=== PATIENT | female | born 1945 | race Caucasian/White ===

== ENCOUNTER → 2017-02-03 | Outpatient (CLI) | payer MEDICARE ==
[~2017-02-03] MED LIST: COUMADIN5 MG PO; LEVOTHROID100 MC1 PO; LISINOPRIL20 MG PO; LOVENOX80 MG/0.8 INJ; PHENERGAN25 MG PO; TEKTURNA150 MG PO; VICODIN 5/1 TAB 5/50 PO
--- NOTE | ~2017-02-03 | US85 ---
[facility] A Service of [facility] / [facility] RADIOLOGY TEXT RESULTS PATIENT: LUCINDA ROBERTS LOCATION: SNIV : 45 UNIT #: [id number] AGE: [address]: Rosalba Nelson MD SEX: F ORDER DR: [id number] [address] [address] [id number] O MR#: [id number] Acc #: [id number] NAME: LUCINDA ROBERTS : 1945 SEX: F STUDY DATE/TIME: 02/03/2017 10:40 UNIT: SNIV ROOM: STUDY DESCRIPTION: [facility] Attending Physician: Rosalba Nelson M.D. Referring Physician: Rosalba Nelson M.D. Ordering Physician: Rosalba Nelson M.D. Primary Care Physician: Rosalba Nelson M.D. MEDICAL IMAGING REPORT This report is preliminary unless electronic signature is present. EXAM Right lower extremity venous ultrasound. HISTORY Previous DVT 2013. The patient not taking blood thinners. Pain and swelling in the right lower extremity x1 month. TECHNIQUE Venous ultrasound examination of the right lower extremity was performed using grayscale, spectral Doppler and color flow Doppler imaging. FINDINGS The examination is negative. There is no evidence of right lower extremity deep venous thrombus from the groin to the lower calf. Visualized greater saphenous vein is also patent. IMPRESSION Negative examination. No evidence of right lower extremity deep venous thrombosis. ADDENDUM The pre billing specialist indicates the study technically difficult due to lower extremity edema. Where visualized, the venous structures show no evidence of deep or superficial venous thrombosis. Dictated by... Carlo Klein M.D. THIS IS AN ELECTRONICALLY VERIFIED REPORT Carlo Klein M.D. at 02/07/2017 10:29 AM Jay [facility] A Service of [facility] / [facility] RADIOLOGY TEXT RESULTS PATIENT: LUCINDA ROBERTS LOCATION: SNIV : 45 UNIT #: [id number] AGE: [address]: Rosalba Nelson MD SEX: F ORDER DR: TD: 02/03/2017 13:14 JOB #: [id number] MEDICAL IMAGING REPORT Page 1 of 1
== END | disposition home or self-care (01) ==
LOC: SNIV 10:18
DX: M79.89 Other specified soft tissue disorders (principal)
CPT/HCPCS: 93971